=== PATIENT | female | born 1995 ===

== ENCOUNTER 2020-09-07 09:15 | Outpatient (CLI) | payer OTHER | END 2020-09-07 09:25 | disposition home or self-care (01) | LOC: RAD 09:15 | PROVIDERS: ATTEND Physical Medicine & Rehabilitation | DX: M65.842 Other synovitis and tenosynovitis, left hand (principal); M60.89 Other myositis, multiple sites; M54.12 Radiculopathy, cervical region; M54.14 Radiculopathy, thoracic region; M54.17 Radiculopathy, lumbosacral region ==